=== PATIENT | female | born 1955 | race Caucasian/White ===

== ENCOUNTER 2018-04-30 05:20 | Day surgery (SDC) | payer OTHER, SELFPAY ==
[2018-04-10 08:06] VITALS: BMI 23.8
--- NOTE | 2018-04-25 16:44 | EKG12_ITS ---
Test Reason : PRE-OP Blood Pressure : / mmHG Vent. Rate : 053 BPM Atrial Rate : 053 BPM P-R Int : 154 ms QRS Dur : 080 ms QT Int : 396 ms P-R-T Axes : 022 -25 081 degrees QTc Int : 371 ms Sinus bradycardia Nonspecific ST and T wave abnormality Abnormal ECG Confirmed by MOLLY CELESTIN, AMANDA ([id number]), food editor AICHA WILLIAM ([id number]) on 04/29/2018 10:24:28 AM Referred By: Anna Way Confirmed By:AMANDA BARNES MD
[2018-04-25 17:07] LABS: Color, Urine Straw (Yellow); Glucose, Dipstick Normal (Normal); Ketone-Dipstick Negative (Negative); Leukocyte Esterase-Dipstick Negative /ul (Negative); Nitrite-Dipstick Negative (Negative); Occult Blood-Urine Negative /ul (Negative); Protein-Dipstick Negative (Negative); Urine Bilirubin Dipstick Negative (Negative); Urine Clarity Clear (Clear); Urine Urobilinogen Normal (Normal)
[2018-04-25 17:08] LABS: Internal QC Validated? YES +Cl - CLEAR BKGD; Pregnancy, Urine Negative Negative
[2018-04-25 17:17] LABS: Hematocrit 43.2 % (37-47); Mean Corp Hgb Conc 32.4 g/gl (32-36); Mean Corpuscular Volume 92.5 fL (81-99); Mean Platelet Vol. 9.5 fl (6.2-12.0); Platelet Count 237 K/mm3 (150-450); RBC Distribution Width CV 12.8 % (11.6-14.6); RBC Distribution Width SD 42.6 fl (35.1-43.9); Red Blood Count 4.67 M/mm3 (4.2-5.4); White Blood Count 5.2 K/mm3 (4.4-11.0)
[2018-04-25 17:20] LABS: Scan Indicated on CBC? Y/N NO
[2018-04-25 18:10] LABS: Thyroid Stim Hormone (TSH) 3.78 uIU/mL (0.358-3.74)
[2018-04-30] VITALS (12 sets, daily range): BP systolic 106–126; BP diastolic 50–76; PULSE 44–61; RESP 16–18; TEMP 35.8–36.9; O2SAT 96–100; BMI 23.5
--- NOTE | 2018-04-30 05:25 | PCM.HPOB.BLA ---
- Problem List (1) Incomplete uterovaginal prolapse Status: Acute History and Physical Date of Admission: 04/30/18 Vital Signs 04/10/18 Height 5 ft 4 in 04/10/18 Weight: 139 lb 04/10/18 Body Mass Index (BMI) 23.8 04/10/18 Blood Pressure 130/72 H Intake Visit Reasons: [facility]NA REFERRAL - EXAM AND CONSULT FOR SURGERY Chief Complaint: Ryana Referral Hr Business Partner Required: No Is patient in pain?: No Medications calcium citrate-vitamin D3 200 mg calcium-250 unit tablet 1 tab PO DAILY 04/10/18 [History Confirmed 04/10/18] diclofenac 1.5 % solution topical kit 6 spray TOPICAL ONCE 04/10/18 [History Confirmed 04/10/18] estradiol 0.01% (0.1 mg/gram) vaginal cream 1 g VAGINAL QWEEK 04/10/18 [History Confirmed 04/10/18] levothyroxine 75 mcg tablet 75 mcg PO DAILY 04/10/18 [History Confirmed 04/10/18] Is last menstrual period known: No Post menopausal: Yes Date of menopause: 03/19/07 Patient : No : No PFSH Medical History Abnormal Pap smear of cervix (Acute) Thyroid disorder (Acute) Surgical History H/O dilation and curettage (Acute) H/O neck surgery (Acute) H/O tubal ligation (Acute) cryo surgery (Acute) Family History Mother Cancer, Onset Age: 86 pancreatic Social History Smoking Status: Never smoker alcohol intake: current details: social substance use type: does not use caffeine: Yes what type of physical activity do you participate in: walking seatbelt use: always do you feel safe at home: Yes additional social history: Oliver- Retired Patient works at [employer] RAYNA REFERRAL - EXAM AND CONSULT FOR SURGERY: Details: ISAEL DANG is a 62 year old who presents for pelvic organ prolapse. she denies any vaginal discharge, bleeding. she does have some odor. she co pelvic pressure and she has seen dr hernandez and is planning a hysterectomy and pelvic support surgery and she is seeing me for hysterectomy consult. Female Reproductive History Questions: Metorrhagia: No, Sexually active: Yes, Dyspareunia: No, PCB: No Date of menopause: 03/19/07 Menopausal Symptoms: No hot flashes, No night sweats, No weight change, No mood changes, No difficulty concentrating, No sleep problems, No change in libido Pregancy History 2 Elective abortions Hx Para 2 Spontaneous abortions Hx # Term Pregnancies Ectopic pregnancies Hx # Pregnancies Multiple births # of living children Past Pregnancies Del. Date Name GA/Weeks Outcome Route Bth Weight Infant Gen Labor Lgth Anesthesia Del Locatn Provider FOB Unknown 1979 Miles Unknown 1981 Basil ROS Const Constitutional: Denies night sweats Cardio Card: Denies chest pain Resp Resp: Denies dyspnea or cough GI GI: Reports as per HPI; denies vomiting, nausea, abdominal pain or constipation : Denies hot flashes or nipple discharge Skin Skin/Breast: Denies breast lump, breast pain, breast skin changes, nipple discharge or change in hair Psych Psych: Denies difficulty concentrating or change in sex drive Exam Const General: cooperative, healthy appearing, comfortable, no acute distress, well developed Nutritional Appearance: average body habitus Orientation: alert HENMT Head: normal to inspection, normocephalic Neck Neck: normal visual inspection, trachea midline Thyroid: thyroid normal Resp Effort & Inspection: normal respiratory effort GI Inspection: normal to inspection, non-distended Palpation: soft, no hepatosplenomegaly General: bladder normal to palpation External Female Exam: normal external appearance, normal appearance of the urethra Urethra: normal appearance of the urethra, normal palpation, no discharge Speculum Exam - Vagina: normal appearance of the vagina, normal vaginal discharge Speculum Exam - Cervix: normal appearance of the cervix, nontender Bimanual Exam- Vagina & Uterus: bladder normal to palpation, No cervical tenderness, normal bimanual exam, uterine size normal, uterine shape normal, uterine mobility normal, uterine consistency normal, normal cervical palpation, uterus non-tender Bimanual Exam- Adnexa, other: normal adnexae, adnexae mobile, no adnexal masses, cystocele Pelvic Support: cystocele Skin General: no rashes or lesions noted Assessment & Plan Problems 1. Incomplete uterovaginal prolapse N81.2 Plan discussed TVHBSO. discussed surgical risks including risks of anesthesia, infection, bleeding, injury to bowel, bladder or blood vessels, and patient wishes to proceed with surgery. UPDATE- I have seen the patient and performed any clinically relevant updates to the history and physical exam. Coretta Gomez MD
[2018-04-30 06:16] LABS: Bedside Glucose 109 mg/dL (70-110)
[2018-04-30] MEDS: Acetaminophen 500 MG Tablet 1000 MG PO ×4 (06:25→23:06)
[2018-04-30] MEDS: Scopolamine 1mg/72hr Patch 1 PATCH TRANSDERM. (06:25)
[2018-04-30] MEDS: Gabapentin 600 MG Tablet PO (06:25)
[2018-04-30] MEDS: Celecoxib 200 MG Capsule 400 MG PO (06:25)
[2018-04-30] MEDS: Lactated Ringers 1,000 ML 100 ML IV ×3 (06:38→23:06)
[2018-04-30] MEDS: Enoxaparin 40 MG/0.4 ML Syringe SC (06:39)
[2018-04-30] MEDS: Phenazopyridine 95 MG Tablet 190 MG PO (06:40)
[2018-04-30] MEDS: Magnesium Sulfate 4gm/100mL 4 GM/100 ML IV.SOLN. IV (06:40)
--- NOTE | 2018-04-30 07:15 | HYST_PTH ---
PATIENT: ISAEL DANG [place] [facility] [place][id number] AGE/SX: 63/F ROOM: RE04/30/[address]: Dr. Anna Way MD : [id number] BED: DIS: 05/01/2018 SPEC #: [id number] RECD: 04/30/18 09:44 STATUS: DEVAUGHN GARETH #: [id number] KIP: 04/30/18 07:[address]: Coretta Gomez DEPT: SURGICAL PATHOLOGY RECD BY: Patel Butts ENTERED: 04/30/18 10:25 SP TYPE: HYSTERECT OTHR DR: MD Alejandra West, DEEDEE-Mukund Tissues: Uterus, NOS Procedures: Surgery Specimen Level V HEADER OPERATION: ERAS, hysterectomy, vaginal, BSO PRE-OP DIAGNOSIS: Cystocele, uterovaginal prolapse, urinary retention TISSUE SUBMITTED: Uterus, bilateral tubes and ovaries MICROSCOPIC DIAGNOSIS Uterus, hysterectomy: Cervix - nabothian cysts and mild chronic inflammation. Endometrium - inactive endometrium with cystic change. Right fallopian tube - benign paratubal cyst. Left fallopian tube - no pathologic change. Right and left ovaries - corpora albicantia. AM:bianca 05/01/18 MICROSCOPIC DESCRIPTION Slides are reviewed. GROSS DESCRIPTION Received in fixative is one container labeled with the patient's name and designated uterus, bilateral tubes and ovaries. The specimen consists of a hysterectomy specimen consisting of uterus with cervix and detached bilateral fallopian tubes and ovaries and attached proximal portion of right and left fallopian tubes. The uterus with cervix including portion of bilateral fallopian tubes weighs 48 gm. The uterus with cervix measures 7 x 4 x 3 cm. The serosal surface is thorpe, glistening. The ectocervical mucosa is congested. The external os is covered with mucoidy, hemorrhagic fluid and circular in contour. The endocervical canal measures 2.5 cm in length and the endocervical mucosa is thorpe, glistening and unremarkable. Sections of the cervix reveal multiple cysts filled with mucoid material. The endometrial cavity is narrow and measures 3 cm in length and up to 0.5 cm in width. The endometrium is without any mass lesion and measures <0.1 cm in thickness. Sections of the uterine wall do not reveal any mass lesion and it measures up to 1.5 cm in thickness. The proximal portion of the right fallopian tube measures 2 cm in length and up to 1 cm in diameter. A rubber ring is noted at the end of this fallopian tube which appears intact. The proximal portion of the left fallopian tube measures 1 cm in length and 1 cm in diameter. A rubber ring is also noted on the end of this tube which appears to be intact. One of the fallopian tube measures 3 cm in length and 0.7 cm in diameter. The fimbrial end is identified. No tubo-ovarian adhesions are noted. Sections of fallopian tube reveal unremarkable cut surfaces. The adjacent ovary measures 1.5 x 1 x 0.5 cm. Sections reveal unremarkable cut surfaces. The second fallopian tube is similar appearance to first one and measures 2.5 cm in length and 0.6 cm in diameter. The adjacent second ovary measures 1 x 0.5 x 0.5 cm. Support Analyst sections are submitted in ten cassettes as follows: 1 - anterior cervix, 2 - posterior cervix, 3 & 4 - anterior uterine wall, 5 & 6 - posterior uterine wall, 7 - proximal portion right fallopian tube, entirely submitted, 8 - proximal portion left fallopian tube, entirely submitted, 9 - one fallopian tube and adjacent ovary, 10 - second fallopian tube and adjacent ovary. / ANTONY:bianca 04/30/18 TC:5 CPT: 53660
[2018-04-30] MEDS: Cefazolin 2 GM in 0.9% Normal Saline 100 ML IV (07:35)
--- NOTE | 2018-04-30 08:35 | OP.PCM_ITS ---
Problem List (1) Incomplete uterovaginal prolapse Status: Acute Report of Operation Date of Procedure: 04/30/18 Pre-Operative Diagnosis: incomplete prolapse Post-Operative Diagnosis: same Surgery/Procedure Performed:: TVHBSO Description of Surgical Findings:: nl uterus tubes ovaries graphic editor: Modesta Keene graphic editor: Anna Way Type of Anesthesia:: General Special Medications: none Specimen's removed: none Drains: delvalle Estimated Blood Loss (mL): 100 Fluids Replaced: crystalloid Description of Procedure: Patient was taken to the operating room and was placed under general anesthesia was prepped and draped in normal sterile fashion in the dorsal lithotomy position. Preoperative antibiotics and SCDs and Delvalle catheter was placed inside the bladder. Weighted speculum was placed in the vagina and the anterior and posterior lip of the cervix was grasped with 2 Julio Cesar clamps and circumferentially injected with dilute vasopressin. A circumferential incision was made with a scalpel and the posterior cul-de-sac was entered into sharply and a longneck speculum was placed. The anterior cul-de-sac was also dissected down and entered into sharply and the uterosacral ligaments were clamped cut and suture ligated bilaterally followed by the cardinal ligaments which were Clamped cut and suture ligated bilaterally with 0 Monocryl. The uterus serially descended and progressive bites were taken bilaterally up to the level of the utero-ovarian ligament bilaterally which was clamped transected and double ligated with 0 Monocryl suture and 0 Vicryl free tie. Bilateral fallopian tubes and ovaries were well visualized and noted be within normal limits and they were transected across the base with a Justine clamp and removed and sutured with 0 Vicryl suture. Excellent hemostasis was noted. The vagina was closed with [id number] 0 Vicryl pop offs including the posterior and anterior peritoneum in the reapproximation. Excellent hemostasis was noted. All instruments removed from the vagina clear urine was noted at the end of the procedure and patient was awoken and taken recovery in stable condition. Grafts/Implants Used: see additional operative note - Complications none
[2018-04-30] MEDS: Vasopressin 20 UNITS/ML Vial (09:10)
[2018-04-30] MEDS: Methylene Blue 1% 100 MG/10 ML VIAL (09:15)
[2018-04-30] MEDS: Estrogens,Conj. 1 Tube 1 DOSE (09:18)
--- NOTE | 2018-04-30 09:47 | PCM.OPRPT ---
Problem List (1) Cystocele Status: Acute (2) Stress incontinence Status: Acute (3) Urethral hypermobility Status: Acute (4) Incomplete uterovaginal prolapse Status: Acute Report of Operation Date of Procedure: 04/30/18 Pre-Operative Diagnosis: cystocele, stress incontinence, urethral hypermobility, uterine prolapse Post-Operative Diagnosis: same Surgery/Procedure Performed:: anterior repair, right sacrospinous ligament fixation, midurethral sling (Altis), cystoscopy Description of Surgical Findings:: tear in detrusor muscle left posterolaterally, mucosa not entered, repaired, no mesh used. No other concerns, good bilateral ureteral jets following procedure. charging plug placer: David - Modesta charging plug placer: Coretta Gomez Type of Anesthesia:: General Estimated Blood Loss (mL): 75cc Description of Procedure: The patient is a 63-year-old female who presented to the office with complaints of pelvic organ prolapse. On further evaluation with urodynamics and office cystoscopy she was determined to have significant stress urinary incontinence as well. After discussing all the risks benefits and alternatives, she agreed to proceed with surgical intervention for treatment. Informed consent was obtained and the consent was signed. The patient was taken to the operating room and placed on the operating room table. Anesthesia monitored the head, neck, airway, IV access, vital signs throughout the case. Once anesthesia was appropriately administered the patient was placed into dorsal lithotomy and Trendelenburg position. She was appropriately prepped and draped in usual sterile fashion. The case was then taken over by Dr. Gomez and the uterus and ovaries were removed. The cuff was closed and my portion of the case proceeded. The anterior vaginal wall was injected with vasopressin for hydrostatic dissection and hemostatic control. A midline incision vertical in fashion approximately 1.5 cm in length was then made in both sharp and blunt dissection ensued until bilaterally the sacral spinous ligaments were identified and the ischial spines were cleared as well. The Capio was used to pass a suture through the right sacrospinous ligament approximately 2 cm medial to the ischial spine. Attention was then turned towards the patient's left side when it became obvious that there was a tear in the detrusor musculature during the blunt dissection portion of the case. This area was approximately 1.5 cm in length and was completely visualized revealing no evidence of injury to the bladder mucosa. This was repaired using 2-0 Vicryl suture. Detrusor musculature was brought back together without an injury to the bladder mucosa. The peritoneum was then sutured over this area as well. At this time I turned my attention towards the anterior defect which was brought together using the remaining pubocervical fascia with interrupted 2-0 sutures in a 2 layer closure. At this time the Capio suture in the sacral spinous ligament was brought out through the apex in full-thickness fashion. The midline vaginal incision was closed using running interlocking 2-0 Vicryl. The sacrospinous ligament suture was tied and the apex was lifted. The mid urethra was then identified and injected submucosally with vasopressin for hydrostatic dissection and hemostatic control. A vertical midline incision approximately 1 cm in length was then made and sharp and blunt dissection ensued until the periurethral space bilaterally was opened in midline and enough space was made for the sling. Using the trochars the alters sling was passed into the obturator complexes bilaterally without difficulty. The sling was positioned in a flat nature against the urethra without tension. The tensioning suture was cut and the mucosa was closed using 2-0 Vicryl interlocking suture. The Donnelly catheter was removed and a cystourethroscopy was performed. There were no entrances into the urinary bladder with suture or other foreign body. Bilaterally there were good ureteral jets observed. The urethra had no entrance from the mid urethral sling. The bladder was emptied and the Donnelly catheter was replaced. The vagina was packed with vaginal packing and estrogen cream. The patient was taken to the recovery room in good condition. Grafts/Implants Used: Altis midurethral sling - Complications Detrusor muscle torn approximately 1.5cm area left posterolateral bladder, no injury to the mucosa. area was repaired with 2-0 vicryl. NO mesh used. Case completed. - Admit VTE Documentation VTE Present on Admission: Yes VTE Mechan Device Prophylaxis: SCD's VTE Pharm Prophylaxis ordered?: Yes
[2018-04-30 11:01] LABS: Bedside Glucose 159 mg/dL (70-110)
[2018-04-30] MEDS: Ketorolac 30 MG/ML Syringe IV ×3 (11:39→23:06)
[2018-04-30] MEDS: Cefazolin 1 GM/50 ML BAG IV ×2 (15:33→23:06)
[2018-04-30] MEDS: Ondansetron ODT 4 MG Tablet PO (16:48)
[2018-04-30] MEDS: proMETHazine 25 MG/ML Syringe 12.5 MG IV (21:08)
[2018-04-30] MEDS: Docusate Sodium 100 MG Capsule PO (23:06)
[2018-05-01 02:14] VITALS: BP 116/57; PULSE 63; RESP 16; TEMP 36.9; O2SAT 96
[2018-05-01] MEDS: Ketorolac 30 MG/ML Syringe IV (05:31)
[2018-05-01 06:07] LABS: Hematocrit 37.6 % (37-47); Hemoglobin 12.3 g/dl (12.0-15.0); Mean Corp Hgb Conc 32.7 g/gl (32-36); Mean Corpuscular Hgb 30.3 pg (27.0-32.0); Mean Corpuscular Volume 92.6 fL (81-99); Mean Platelet Vol. 10.3 fl (6.2-12.0); Platelet Count 193 K/mm3 (150-450); RBC Distribution Width CV 12.6 % (11.6-14.6); RBC Distribution Width SD 41.6 fl (35.1-43.9); Red Blood Count 4.06 M/mm3 (4.2-5.4); White Blood Count 12.2 K/mm3 (4.4-11.0)
[2018-05-01 06:28] LABS: Scan Indicated on CBC? Y/N NO
[2018-05-01] MEDS: Acetaminophen 500 MG Tablet 1000 MG PO (06:41)
--- NOTE | 2018-05-01 08:19 | PCM.PN.OB ---
Patient Problems: Active and Suspected Problems (Last Updated 04/10/18 @ 08:20 by Coretta Gomez MD) Incomplete uterovaginal prolapse (Acute) Cystocele (Acute) Stress incontinence (Acute) Urethral hypermobility (Acute) Subjective: NO CP, SOB. Has not voided yet. States pain controlled. - Physical Exam General: Alert, Oriented x3 Abdomen: Soft, Non Tender, Non-Distended Vital Signs Temp Pulse Resp BP Pulse Ox 98.4 F 63 16 116/57 L 96 05/01/18 02:14 05/01/18 02:14 05/01/18 02:14 05/01/18 02:14 05/01/18 02:14 Oxygen Flow Rate (L/min) 2 Oxygen Delivery Method Room Air Weight: 136 lb 14.513 oz Body Mass Index (BMI) 23.5 Finger Stick Blood Glucose 159 Intake and Output for Last 24 Hours 04/29/18 04/30/18 05/01/18 23:59 23:59 23:59 Intake Total 3231 / 3231 1064 / 1064 Output Total 950 / 950 1225 / 1225 Balance 2281 / 2281 -161 / -161 Microbiology Past 72 Hours 04/25/18 16:30 Urine Culture - Final Urine, Clean Catch Culture exhibits no growth. Laboratory Tests Past 24 Hrs 05/01/18 05:22 WBC 12.2 H RBC 4.06 L Hgb 12.3 Hct 37.6 MCV 92.6 MCH 30.3 MCHC 32.7 RDW 12.6 RDW Differential 41.6 Plt Count 193 MPV 10.3 POC Glucose 04/30/18 10:55 POC Glucose 159 H Medical Necessity - Tobacco Use Smoking Status: Never smoker Assessment/Plan All Active Problems (Last Updated 04/10/18 @ 08:20 by Coretta Gomez MD) Incomplete uterovaginal prolapse (Acute) Cystocele (Acute) Stress incontinence (Acute) Urethral hypermobility (Acute) TVH POD#1: Routine care. Plans home this morning
--- NOTE | 2018-05-01 08:30 | PCM.DC.VHY ---
Allergies/Adverse Reactions: Allergies amoxicillin Adverse Reaction (Verified 04/30/18 05:58) Diarrhea Medications to take at Discharge calcium citrate-vitamin D3 200 mg calcium-250 unit tablet 1 tab PO DAILY 04/10/18 diclofenac 1.5 % solution topical kit 10 spray TOPICAL DAILY 04/10/18 estradiol 0.01% (0.1 mg/gram) vaginal cream 1 g VAGINAL QWEEK 04/10/18 levothyroxine 75 mcg tablet 75 mcg PO DAILY 04/10/18 Pseudoephedrine HCl [Suphedrin] 30 mg PO Q4H PRN PRN 04/24/18 Naproxen [Naprosyn] 500 mg PO BID PRN PRN #60 tablet 05/01/18 Oxycodone HCl/Acetaminophen [Percocet 5/325] 1 - 2 tablet PO Q4H PRN PRN 3 Days #15 tablet 05/01/18 The following prescriptions were given: Oxycodone HCl/Acetaminophen [Percocet 5/325] 1 - 2 tablet PO Q4H PRN PRN 3 Days #15 tablet PRN Reason: Pain Naproxen [Naprosyn] 500 mg PO BID PRN PRN #60 tablet PRN Reason: Pain Orders to be completed after discharge: 12 Lead EKG [CVS] Time Frame: 04/24/18, Facility: [facility], Location: Cardiovascular Services Thyroid Stim Hormone (TSH) Time Frame: 04/24/18, Location: Laboratory Primary Care Physician: Alejandra Rodriguez NP-C [Primary Care Provider] - Test Results: Test results from this visit will be discussed in further detail at your follow-up appointment, if applicable.
--- NOTE | 2018-05-01 08:33 | PCM.PROGNOTE ---
Patient Problems: Active and Suspected Problems (Last Updated 04/10/18 @ 08:20 by Coretta Gomez MD) Incomplete uterovaginal prolapse (Acute) Cystocele (Acute) Stress incontinence (Acute) Urethral hypermobility (Acute) Subjective: Sitting up in bed. Pain controlled. Delvalle and packing are out. Mild urgency after the delvalle removed. Has not yet voided. No issues overnight. - Physical Exam General: Alert, Oriented x3, Cooperative, No apparent distress HEENT: Atraumatic, Normocephalic Oral: Moist Mucosa Neck: Trachea Midline Lungs: Normal air movement Abdomen: Soft Extremities: - - SCD's in place Neurological: Cranial nerves II-XII grossly intact Psych/Mental Status: Normal Affect Vital Signs Temp Pulse Resp BP Pulse Ox 98.4 F 63 16 116/57 L 96 05/01/18 02:14 05/01/18 02:14 05/01/18 02:14 05/01/18 02:14 05/01/18 02:14 Oxygen Flow Rate (L/min) 2 Oxygen Delivery Method Room Air Weight: 62.1 kg Body Mass Index (BMI) 23.5 Finger Stick Blood Glucose 159 Intake and Output for Last 24 Hours 04/29/18 04/30/18 05/01/18 23:59 23:59 23:59 Intake Total 3231 / 3231 1064 / 1064 Output Total 950 / 950 1225 / 1225 Balance 2281 / 2281 -161 / -161 Microbiology Past 72 Hours 04/25/18 16:30 Urine Culture - Final Urine, Clean Catch Culture exhibits no growth. Laboratory Tests Past 24 Hrs 05/01/18 05:22 WBC 12.2 H RBC 4.06 L Hgb 12.3 Hct 37.6 MCV 92.6 MCH 30.3 MCHC 32.7 RDW 12.6 RDW Differential 41.6 Plt Count 193 MPV 10.3 POC Glucose 04/30/18 10:55 POC Glucose 159 H Medical Necessity - Tobacco Use Smoking Status: Never smoker Assessment/Plan All Active Problems (Last Updated 04/10/18 @ 08:20 by Coretta Gomez MD) Incomplete uterovaginal prolapse (Acute) Cystocele (Acute) Stress incontinence (Acute) Urethral hypermobility (Acute) POD #1 hysterectomy BSO, anterior repair, SSLF, sling and cystoscopy home today await trial of void if home without delavlle, see me in 2 weeks.
--- NOTE | 2018-05-01 08:37 | DCINST_ITS ---
Discharge Diet: No Restrictions Discharge Activity: May not drive while taking narcotic pain medications., May Shower May resume sexual activity in: 8 weeks Call your doctor if your incision/area has: Sudden Increased Bleeding, Foul Smelling Discharge Call your doctor if you observe: Fever of 101 or Higher, Inability to urinate, Inability to have a bowel movement, Shortness of breath, Chest pain, Calf discomfort, Uncontrolled pain Additional Instructions: continue estrogen cream right over the sutures in the vagina Allergies/Adverse Reactions: Allergies amoxicillin Adverse Reaction (Verified 04/30/18 05:58) Diarrhea Medications to take at Discharge calcium citrate-vitamin D3 200 mg calcium-250 unit tablet 1 tab PO DAILY 04/10/18 diclofenac 1.5 % solution topical kit 10 spray TOPICAL DAILY 04/10/18 estradiol 0.01% (0.1 mg/gram) vaginal cream 1 g VAGINAL QWEEK 04/10/18 levothyroxine 75 mcg tablet 75 mcg PO DAILY 04/10/18 Pseudoephedrine HCl [Suphedrin] 30 mg PO Q4H PRN PRN 04/24/18 Naproxen [Naprosyn] 500 mg PO BID PRN PRN #60 tablet 05/01/18 Oxycodone HCl/Acetaminophen [Percocet 5/325] 1 - 2 tablet PO Q4H PRN PRN 3 Days #15 tablet 05/01/18 The following prescriptions were given: Oxycodone HCl/Acetaminophen [Percocet 5/325] 1 - 2 tablet PO Q4H PRN PRN 3 Days #15 tablet PRN Reason: Pain Naproxen [Naprosyn] 500 mg PO BID PRN PRN #60 tablet PRN Reason: Pain Orders to be completed after discharge: 12 Lead EKG [CVS] Time Frame: 04/24/18, Facility: [facility], Location: Cardiovascular Services Thyroid Stim Hormone (TSH) Time Frame: 04/24/18, Location: Laboratory Primary Care Physician: Alejandra Rodriguez NP-C [Primary Care Provider] - Test Results: Test results from this visit will be discussed in further detail at your follow- up appointment, if applicable. Please Follow Up With: Anna Way MD When: 2 weeks, call office for appt Proposed Discharge Date: 05/01/18
[2018-05-01] MEDS: Enoxaparin 40 MG/0.4 ML Syringe SC (08:53)
[2018-05-01] MEDS: Docusate Sodium 100 MG Capsule PO (08:53)
[2018-05-01 08:55] VITALS: BP 106/57; PULSE 61; RESP 16; TEMP 36.9; O2SAT 96
--- NOTE | 2018-05-01 09:27 | NURSING ---
PT UP TO RESTROOM. URINATED 15CC YELLOW/CONCENTRATED URINE. BLADDER SCAN FOR 625CC. PT REPORTS CONTINUED PRESSURE TO URINATE. WILL MONITOR AT THIS TIME. DENIES NEEDS.
[2018-05-01 12:55] VITALS: BP 110/60; PULSE 64; RESP 18; TEMP 36.8; O2SAT 96
== END 2018-05-01 13:11 | disposition home or self-care (01) ==
LOC: SDC 05:21 → AC 05:22 → MS3 10:14 → MS2 10:20
PROVIDERS: Obstetrics & Gynecology; Family Provider Nurse Practitioner Adult Health; PCP Nurse Practitioner Adult Health; Referring Provider Urology; Visit Provider Urology
PROC: (CPT 58260; principal; 2018-04-30 06:55)
DX: N88.8 Other specified noninflammatory disorders of cervix uteri (principal); N72 Inflammatory disease of cervix uteri; N83.8 Other noninflammatory disorders of ovary, fallopian tube and broad ligament; N83.292 Other ovarian cyst, left side; N83.291 Other ovarian cyst, right side; N81.2 Incomplete uterovaginal prolapse; N39.3 Stress incontinence (female) (male); N36.41 Hypermobility of urethra; S39.023A Laceration of muscle, fascia and tendon of pelvis, initial encounter; N99.71 Accidental puncture and laceration of a genitourinary system organ or structure during a genitourinary system procedure; E03.9 Hypothyroidism, unspecified; Z79.899 Other long term (current) drug therapy; Y93.89 Activity, other specified; Y92.234 Operating room of hospital as the place of occurrence of the external cause; Y99.8 Other external cause status
CPT/HCPCS: 20999; 57282; 57288; 58262; 36415; 81002; 81025; 82962; 84443; 85027; 86850; 86900; 87086; 88307; 93005; J7120; J2405

== ENCOUNTER → 2018-05-14 16:02 | Outpatient (CLI) | payer SELFPAY ==
[2018-05-14 08:56] VITALS: BMI 23.5
== END ==
PROVIDERS: Family Provider Nurse Practitioner Adult Health; PCP Nurse Practitioner Adult Health; Referring Provider Nurse Practitioner Women's Health; Visit Provider Nurse Practitioner Women's Health
DX: R30.0 Dysuria (principal)
CPT/HCPCS: 87077; 87086; 87088